=== PATIENT | female | born 1970 | race Asian ===

== ENCOUNTER 2017-10-27 11:54 | Emergency (ER) | payer SELFPAY ==
[2017-10-27] MEDS ORDERED: Lidocaine 2% Jelly 10 ML Urojet MUCMEM ONE (12:37)
--- NOTE | 2017-10-27 13:00 | EDM.PDOC ---
ED HPI GENERAL MEDICAL PROBLEM - General Chief Complaint: Skin Complaint Stated Complaint: MEDICAL Time Seen by Provider: 10/27/17 12:30 Source of Information: Reports: Patient History Limitations: Reports: No Limitations - History of Present Illness INITIAL COMMENTS - FREE TEXT/NARRATIVE: 47-year-old female with a history of recurring thrombosed internal hemorrhoids presents with a current flare of painful swollen hemorrhoids for the past 5-7 days. She's been taking warm baths but it's not improving. Onset: Gradual (Over the past 7 days) - Related Data Allergies Allergy/AdvReac Type Severity Reaction Status Date / Time No Known Allergies Allergy Verified 10/27/17 12:18 Home Meds: Home Meds NK [No Known Home Meds] 10/27/17 [History] Past Medical History - Past Health History Medical/Surgical History: Denies Medical/Surgical History - Past Surgical History GI Surgical History: Reports: Other (See Below) Female Surgical History: Reports: Section Social & Family History - Tobacco Use Smoking Status *Q: Never Smoker ED ROS GENERAL - Review of Systems Review Of Systems: See Below Constitutional: Denies: Fever Respiratory: Denies: Shortness of Breath GI/Abdominal: Denies: Abdominal Pain, Nausea, Vomiting : Reports: No Symptoms Neurological: Reports: No Symptoms Psychiatric: Reports: No Symptoms ED EXAM, SKIN/RASH Exam: See Below Exam Limited By: No Limitations General Appearance: Alert, No Apparent Distress Respiratory/Chest: No Respiratory Distress Rectal (Female) Exam: Other (Exam is otherwise limited to the rectal area. The patient has a fairly large multi loculated right-sided thrombosed hemorrhoid which is very tender to palpation.) Course - Vital Signs Last Recorded V/S: Last Vital Signs Temp 98 F 10/27/17 12:27 Pulse 71 10/27/17 12:27 Resp 14 10/27/17 12:27 BP 144/92 H 10/27/17 12:27 Pulse Ox 99 10/27/17 12:27 - Orders/Labs/Meds Meds: Medications Discontinued Medications Generic Name Dose Route Start Last Admin Trade Name Freq PRN Reason Stop Dose Admin Lidocaine HCl 5 ml 10/27/17 12:37 10/27/17 12:45 Xylocaine-Mpf 1% INJECT 10/27/17 12:38 5 ml ONETIME ONE Administration Lidocaine HCl 10 ml 10/27/17 12:37 10/27/17 12:45 Xylocaine 2% Jelly MUCMEM 10/27/17 12:38 10 ml ONETIME ONE Administration - Re-Assessments/Exams Free Text/Narrative Re-Assessment/Exam: 10/27/17 12:58 The area was sterilized with Betadine, infiltrated with 1% lidocaine and the hemorrhoids were opened with a #11 scalpel. All the thrombosis was removed, and using a cross-clamp the surface of the hemorrhoids were cut off with a curved iris scissors. Topical viscous lidocaine was used for postprocedure anesthesia and she can increase activity as tolerated. Departure - Departure Time of Disposition: 13:19 Disposition: Home, Self-Care 01 Condition: Good Clinical Impression: External hemorrhoid, thrombosed - Discharge Information Instructions: Hemorrhoids, [id number] Referrals: PCP,None [Primary Care Provider] - Forms: ED Department Discharge Care Plan Goals: Continue with warm baths twice daily, topical numbing medicine may help or ibuprofen. Activity as tolerated. Recheck in 3-4 days if not improving satisfactorily.
== END 2017-10-27 13:18 | disposition home or self-care (01) ==
LOC: JP.ED 11:54
DX: K64.5 Perianal venous thrombosis (principal)
CPT/HCPCS: 46083; 99283; 99283-25

== ENCOUNTER 2019-08-15 12:35 | Emergency (ER) | payer OTHER ==
[2019-08-15] MEDS ORDERED: Aluminum Hydroxide/Magnesium Hydroxide/Simethicone Susp 30 ML Cup PO ONE (13:11)
[2019-08-15] MEDS ORDERED: Ondansetron 4 MG Tab.DIS PO ONE (13:11)
[2019-08-15] MEDS ORDERED: Acetaminophen 325 MG Tab PO ONE (13:11)
--- NOTE | 2019-08-15 13:26 | EDM.PDOC ---
ED HPI GENERAL MEDICAL PROBLEM - General Chief Complaint: Abdominal Pain Stated Complaint: POSSIBLE SINUS INFECTION Time Seen by Provider: 08/15/19 13:10 Source of Information: Reports: Patient, Provider History Limitations: Reports: No Limitations - History of Present Illness INITIAL COMMENTS - FREE TEXT/NARRATIVE: 49 yo female presents on referral from the clinic for evaluation of BARNHART, fever, body aches. She was seen yesterday in the clinic and had a negative influenza test so was started on doxycycline that has not helped so far and in fact she also has now epigastric pain with nausea/vomiting. Today her temperature has dropped from 102F to 99F. Last took acetaminophen yesterday. Has a slightly stiff neck and some mild photophobia. Reportedly spends very little time outside, does not recall any tick bites. Onset: Gradual Onset Date: 08/13/19 Duration: Day(s):, Constant Location: Reports: Head, Neck, Abdomen (new since yesterday), Generalized Quality: Reports: Other (abdominal pain is crampy) Severity: Moderate Improves with: Reports: None Worsens with: Reports: None Context: Reports: Other (See HPI) Associated Symptoms: Reports: Fever/Chills, Headaches, Nausea/Vomiting (since yesterday and starting the doxycycline) Treatments CARTON CATCHER: Reports: Other (see below) (doxycycline) Headache Pain Score (Numeric/FACES): 10 Abdominal Pain Score (Numeric/FACES): 10 Lower Back Pain Score (Numeric/FACES): 9 - Related Data Allergies Allergy/AdvReac Type Severity Reaction Status Date / Time No Known Allergies Allergy Verified 08/15/19 12:54 Home Meds: Home Meds Doxycycline [Doxycycline Hyclate] 100 mg PO BID 08/15/19 [History] Ondansetron [Zofran ODT] 4 mg PO Q6H PRN #7 tab.dis 08/15/19 [Rx] Past Medical History - Past Health History Medical/Surgical History: Denies 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: Neurological History: Reports: Headaches, Chronic - Past Surgical History Head Surgeries/Procedures: Reports: None GI Surgical History: Reports: None, Other (See Below) Female Surgical History: Reports: Section Neurological Surgical History: Reports: None Dermatological Surgical History: Reports: None Social & Family History - Tobacco Use Smoking Status *Q: Never Smoker Second Hand Smoke Exposure: No - Caffeine Use Caffeine Use: Reports: Coffee - Recreational Drug Use Recreational Drug Use: No ED ROS GENERAL - Review of Systems Review Of Systems: See Below Constitutional: Reports: Fever, Chills, Malaise HEENT: Reports: No Symptoms Respiratory: Reports: No Symptoms. Denies: Cough Cardiovascular: Reports: No Symptoms Endocrine: Reports: No Symptoms GI/Abdominal: Reports: Abdominal Pain (epigastric since yesterday), Nausea, Vomiting (since yesterday.). Denies: Black Stool, Bloody Stool, Constipation, Diarrhea, Distension, Flatus, Hematemesis, Hematochezia : Reports: No Symptoms Musculoskeletal: Reports: No Symptoms (diffuse body aches) Skin: Reports: No Symptoms Neurological: Reports: Headache ED EXAM, GENERAL - Physical Exam Exam: See Below Exam Limited By: No Limitations General Appearance: Alert, WD/WN, Mild Distress Eye Exam: Bilateral Eye: Normal Inspection Ears: Normal External Exam, Normal Canal, Hearing Grossly Normal, Normal TMs Ear Exam: Bilateral Ear: Auricle Normal, Canal Normal, TM normal Nose: Normal Inspection, No Blood Throat/Mouth: Normal Inspection, Normal Lips, Normal Oropharynx, Normal Voice, No Airway Compromise Head: Atraumatic, Normocephalic Neck: Normal Inspection, Supple, Full Range of Motion, Other (BARNHART slightly worse with full flexion) Respiratory/Chest: No Respiratory Distress, Lungs Clear, Normal Breath Sounds, No Accessory Muscle Use Cardiovascular: Regular Rate, Rhythm, No Edema GI/Abdominal: Normal Bowel Sounds, Soft, No Distention, Tender (epigastric only) . No: Non-Tender Back Exam: Normal Inspection. No: CVA Tenderness (R), CVA Tenderness (L) Extremities: Normal Inspection, Normal Range of Motion, Non-Tender, No Pedal Edema Neurological: Alert, Oriented, CN II-XII Intact, Normal Cognition, No Motor/ Sensory Deficits Psychiatric: Normal Affect, Normal Mood Skin Exam: Warm, Dry, Intact, Normal Color, No Rash Course - Vital Signs Text/Narrative:: Feeling better after tx in the ER. Last Recorded V/S: Last Vital Signs Temp 37.8 C 08/15/19 13:16 Pulse 96 08/15/19 13:00 Resp 16 08/15/19 13:00 BP 129/84 08/15/19 13:00 Pulse Ox 99 08/15/19 13:00 Orthostatic Blood Pressure [ 127/86 Standing] Orthostatic Blood Pressure [ 130/76 Sitting] Orthostatic Blood Pressure [ 118/78 Supine] - Orders/Labs/Meds Orders: Active Orders 24 hr Category Date Time Status Orthostatic Vital Signs [RC] ASDIRECTED Care 08/15/19 13:12 Active CULTURE URINE [RM] Stat Lab 08/15/19 14:18 Ordered LYME, TOTAL AB TEST/REFLEX Routine Lab 08/15/19 14:19 Ordered Labs: Laboratory Tests 08/15/19 08/15/19 Range/Units 12:52 13:57 WBC 10.7 (4.5-11.0) K/uL RBC 4.97 (3.30-5.50) M/uL Hgb 12.5 (12.0-15.0) g/dL Hct 39.1 (36.0-48.0) % MCV 79 L (80-98) fL MCH 25 L (27-31) pg MCHC 32 (32-36) % Plt Count 247 (150-400) K/uL Urine Color Yellow (YELLOW) Urine Appearance Slightly cloudy A (CLEAR) Urine pH 7.0 (5.0-8.0) Ur Specific [place] 1.020 (1.008-1.030) Urine Protein 100 H (NEGATIVE) mg/dL Urine Glucose (UA) Negative (NEGATIVE) mg/dL Urine Ketones 15 H (NEGATIVE) mg/dL Urine Occult Blood Small H (NEGATIVE) Urine Nitrite Negative (NEGATIVE) Urine Bilirubin Negative (NEGATIVE) Urine Urobilinogen 2.0 H (0.2-1.0) EU/dL Ur Leukocyte Esterase Negative (NEGATIVE) Urine RBC 10-20 H (0-5) Urine WBC 10-20 H (0-5) Ur Epithelial Cells Moderate Amorphous Sediment Not seen Urine Bacteria Many Urine Mucus Not seen Meds: Medications Discontinued Medications Generic Name Dose Route Start Last Admin Trade Name Freq PRN Reason Stop Dose Admin Acetaminophen 650 mg 08/15/19 13:11 08/15/19 13:16 Tylenol PO 08/15/19 13:12 650 mg NOW ONE Administration Al Hydroxide/Mg Hydroxide 30 ml 08/15/19 13:11 08/15/19 13:16 Mag-Al Plus PO 08/15/19 13:12 30 ml ONETIME ONE Administration Ondansetron HCl 4 mg 08/15/19 13:11 08/15/19 13:15 Zofran Odt PO 08/15/19 13:12 4 mg ONETIME ONE Administration Departure - Departure Time of Disposition: 14:21 Disposition: Home, Self-Care 01 Condition: Fair Clinical Impression: Viral syndrome, Medication side effect - Discharge Information *PRESCRIPTION DRUG MONITORING PROGRAM REVIEWED*: No *COPY OF PRESCRIPTION DRUG MONITORING REPORT IN PATIENT DUANE: No Prescriptions: Ondansetron [Zofran ODT] 4 mg PO Q6H PRN #7 tab.dis PRN Reason: Nausea Referrals: Hayley Estrada CNM [Primary Care Provider] - Forms: ED Department Discharge Additional Instructions: Stop the doxycycline due to gastric irritation. Take acetaminophen 650 mg every 4 hrs as needed for pain/fever/headache. Take Maalox every 4 hrs up to 2 tablespoons as needed for upset stomach. Rest. Drink ample fluids. Recheck in the clinic on Saturday or Saturday to follow up on your urine culture. Return if worse. - My Orders Last 24 Hours: My Active Orders 08/15/19 13:12 Orthostatic Vital Signs [RC] ASDIRECTED 08/15/19 14:18 CULTURE URINE [RM] Stat 08/15/19 14:19 LYME, TOTAL AB TEST/REFLEX Routine - Assessment/Plan Last 24 Hours: My Active Orders 08/15/19 13:12 Orthostatic Vital Signs [RC] ASDIRECTED 08/15/19 14:18 CULTURE URINE [RM] Stat 08/15/19 14:19 LYME, TOTAL AB TEST/REFLEX Routine
[2019-08-19 09:09] LABS: LYME IGG/IGM AB <0.91 ISR (0.00-0.90)
== END 2019-08-15 14:36 | disposition home or self-care (01) ==
LOC: JP.ED 12:35
DX: B34.9 Viral infection, unspecified (principal); R10.13 Epigastric pain; T36.4X5A Adverse effect of tetracyclines, initial encounter
CPT/HCPCS: 36415; 81001; 85027; 87086; 99284; A9270

== ENCOUNTER 2021-10-30 20:01 | Emergency (ER) | payer OTHER ==
[2021-10-30] MEDS ORDERED: Sodium Chloride 0.9% 1,000 ML IV SCH (20:30)
[2021-10-30] MEDS ORDERED: Acetaminophen 325 MG Tab PO ONE (20:37)
[2021-10-30] MEDS ORDERED: Ondansetron 4 MG/2 ML SDV IVPUSH ONE (20:37)
[2021-10-30] MEDS ORDERED: HYDROmorphone 0.5 MG/0.5 ML Syringe IVPUSH ONE (20:50)
--- NOTE | 2021-10-30 20:59 | EDM.PDOC ---
ED HPI GENERAL MEDICAL PROBLEM - General Chief Complaint: Gastrointestinal Problem Stated Complaint: dehydrated, throwing up, weak Time Seen by Provider: 10/30/21 20:15 Source of Information: Reports: Patient, Family (Friend), RN History Limitations: Reports: No Limitations - History of Present Illness INITIAL COMMENTS - FREE TEXT/NARRATIVE: chief complaint: abdominal pain with nausea and vomiting. This is a 51 year old female with limited Eritrean, her Boyfriend is here to assist with speaking. They report she woke up this morning nauseated and vomiting. she has not been able to keep any food or liquids in. reports abdomen and right sided back pain. She is generally healthy, not taking any medications. Last time in hospital 20 years ago. Covid-19 vaccinated. Onset: Today Duration: Getting Worse Location: Reports: Abdomen, Radiates to (right back) Quality: Reports: Ache, Sharp Severity: Moderate (rates pain 8 out of 10) Improves with: Reports: None Worsens with: Reports: None Associated Symptoms: Reports: Fever/Chills, Headaches, Loss of Appetite, Nausea/Vomiting (reports woke up with nausea and vomiting), Weakness Treatments CHEMICAL PREPARER: Reports: Acetaminophen Headache Pain Score (Numeric/FACES): 8 - Related Data Allergies Allergy/AdvReac Type Severity Reaction Status Date / Time No Known Allergies Allergy Verified 08/15/19 12:54 Past Medical History - Past Health History Medical/Surgical History: Denies 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: Neurological History: Reports: Headaches, Chronic - Past Surgical History Head Surgeries/Procedures: Reports: None GI Surgical History: Reports: None, Other (See Below) Female Surgical History: Reports: Section Neurological Surgical History: Reports: None Dermatological Surgical History: Reports: None Social & Family History - Tobacco Use Tobacco Use Status *Q: Never Tobacco User Second Hand Smoke Exposure: No - Caffeine Use Caffeine Use: Reports: Coffee - Recreational Drug Use Recreational Drug Use: No - Living Situation & Occupation Living situation: Reports: ED ROS GENERAL - Review of Systems Review Of Systems: See Below Constitutional: Reports: Fever, Chills, Malaise, Decreased Appetite HEENT: Reports: No Symptoms Respiratory: Reports: No Symptoms Cardiovascular: Reports: No Symptoms Endocrine: Reports: No Symptoms GI/Abdominal: Reports: Abdominal Pain, Decreased Appetite, Nausea, Vomiting Musculoskeletal: Reports: Back Pain, Muscle Pain Skin: Reports: No Symptoms Neurological: Reports: No Symptoms Psychiatric: Reports: No Symptoms Hematologic/Lymphatic: Reports: No Symptoms Immunologic: Reports: No Symptoms ED EXAM, GI/ABD - Physical Exam Exam: See Below Exam Limited By: Language Barrier General Appearance: Alert, WD/WN, Moderate Distress, Thin Eyes: Bilateral: Normal Appearance Ears: Normal External Exam, Normal Canal, Hearing Grossly Normal, Normal TMs Nose: Normal Inspection, Normal Mucosa, No Blood Throat/Mouth: Normal Inspection, Normal Lips, Normal Teeth, Normal Gums, Normal Oropharynx, Normal Voice, No Airway Compromise Head: Atraumatic, Normocephalic Neck: Normal Inspection, Supple, Non-Tender, Full Range of Motion Respiratory/Chest: No Respiratory Distress, Lungs Clear, Normal Breath Sounds, No Accessory Muscle Use, Chest Non-Tender Cardiovascular: Normal Peripheral Pulses, Regular Rate, Rhythm, No Edema, No Gallop, No Murmur GI/Abdominal Exam: Normal Bowel Sounds, Soft, Non-Tender, No Organomegaly, No Distention, No Abnormal Bruit, No Mass, Pelvis Stable (Female) Exam: Deferred Rectal (Female) Exam: Deferred Back Exam: Normal Inspection, Full Range of Motion Extremities: Normal Inspection, Normal Range of Motion, Non-Tender, No Pedal Edema, Normal Capillary Refill Neurological: Alert, Oriented, Normal Cognition, No Motor/Sensory Deficits Psychiatric: Normal Affect, Normal Mood Skin Exam: Warm, Dry, Intact, Normal Color, No Rash Lymphatic: No Adenopathy Course - Vital Signs Last Recorded V/S: Last Vital Signs Temp 100.2 F 10/30/21 21:17 Pulse 93 10/30/21 20:21 Resp 16 10/30/21 20:21 BP 125/72 10/30/21 20:21 Pulse Ox 97 10/30/21 20:21 - Orders/Labs/Meds Orders: Active Orders 24 hr Category Date Time Status UA W/MICROSCOPIC [URIN] Urgent Lab 10/30/21 20:19 Ordered Sodium Chloride 0.9% [Normal Saline] 1,000 ml Med 10/30/21 20:30 Active IV ASDIRECTED Medication Orders Sodium Chloride (Normal Saline) 1,000 mls @ 999 mls/hr IV ASDIRECTED SALVADOR Last Admin: 10/30/21 20:46 Dose: 999 mls/hr Documented by: RADHA Labs: Laboratory Tests 10/30/21 10/30/21 10/30/21 Range/Units 20:31 20:31 20:31 WBC 6.2 (4.5-11.0) K/uL RBC 5.40 (3.30-5.50) M/uL Hgb 14.1 (12.0-15.0) g/dL Hct 42.5 (36.0-48.0) % MCV 79 L (80-98) fL MCH 26 L (27-31) pg MCHC 33 (32-36) % Plt Count 232 (150-400) K/uL Neut % (Auto) 90.8 H (36-66) % Lymph % (Auto) 5.8 L (24-44) % [place] % (Auto) 3.1 (2-6) % Eos % (Auto) 0.0 L (2-4) % Baso % (Auto) 0.3 (0-1) % Sodium 139 L (140-148) mmol/L Potassium 3.8 (3.6-5.2) mmol/L Chloride 101 (100-108) mmol/L Carbon Dioxide 26 (21-32) mmol/L Anion Gap 15.8 H (5.0-14.0) mmol/L BUN 15 (7-18) mg/dL Creatinine 0.8 (0.6-1.0) mg/dL Est Cr Clr Drug Dosing 63.74 mL/min Estimated GFR (MDRD) > 60 (>60) Glucose 138 H (74-106) mg/dL Calcium 8.6 (8.5-10.1) mg/dL Magnesium 1.9 (1.8-2.4) mg/dL Total Bilirubin 0.2 (0.2-1.0) mg/dL AST 21 (15-37) U/L ALT 27 (12-78) U/L Alkaline Phosphatase 57 (46-116) U/L Total Protein 7.4 (6.4-8.2) g/dL Albumin 3.6 (3.4-5.0) g/dL Globulin 3.8 H (2.3-3.5) g/dL Albumin/Globulin Ratio 1.0 L (1.2-2.2) Amylase 65 (25-115) U/L Lipase 66 L (73-393) U/L Influenza Type A RNA Negative (NEGATIVE) RSV RNA (INAAT) Negative (NEGATIVE) Influenza Type B RNA Negative (NEGATIVE) SARS-CoV-2 RNA (VANDANA) Positive H (NEGATIVE) Meds: Medications Generic Name Dose Route Start Last Admin Trade Name Florina PRN Reason Stop Dose Admin Sodium Chloride 1,000 mls @ 999 mls/hr 10/30/21 20:30 10/30/21 20:46 Normal Saline IV 999 mls/hr ASDIRECTED SALVADOR Administration Discontinued Medications Generic Name Dose Route Start Last Admin Trade Name Florina PRN Reason Stop Dose Admin Acetaminophen 650 mg 10/30/21 20:37 10/30/21 20:50 Acetaminophen 325 Mg Tab PO 10/30/21 20:38 650 mg NOW ONE Administration Hydromorphone HCl 0.5 mg 10/30/21 20:50 10/30/21 21:11 Hydromorphone 0.5 Mg/0.5 Ml Syringe IVPUSH 10/30/21 20:51 0.5 mg ONETIME ONE Administration Ondansetron HCl 4 mg 10/30/21 20:37 10/30/21 20:47 Ondansetron 4 Mg/2 Ml Sdv IVPUSH 10/30/21 20:38 4 mg ONETIME ONE Administration - Re-Assessments/Exams Free Text/Narrative Re-Assessment/Exam: 10/30/21 21:19 [address] with Mrs. Cueto will do labs, Imaging, medication, and IV fluids -CT Abdominal and Pelvis to rule out any acute abdominal process -CBC, CMP, AMYLASE, LIPASE, URINE, COVID -Meds- Zofran 4 mg. IVP for nausea, Dilaudid 0.5 mg IV for pain control agree with plan of care. 10/30/21 21:23 call from labs critical value- Positive Covid test - this would account for rapid symptoms. vital signs are 97.8-93-16 B/P 125/72 oxygen sat 97% 10/30/21 22:24 labs cbc, cmp, amylase, lipase and urine normal results Covid test is positive CT abdomen-pelvis is negative for acute abdomen.- will give copy of scan report will discharge to home with Covid 19 instructions Zofran 4 mg po as directed over the counter Tylenol and Motrin for pain or fever. 10/30/21 22:26 discharge to home Departure - Departure Time of Disposition: 22:40 Disposition: Home, Self-Care 01 Condition: Good Clinical Impression: COVID-19 - Discharge Information *PRESCRIPTION DRUG MONITORING PROGRAM REVIEWED*: Not Applicable *COPY OF PRESCRIPTION DRUG MONITORING REPORT IN PATIENT DUANE: Not Applicable Instructions: Symptoms of COVID-19 - [facility] (12/19/2020) Referrals: PCP,None [Primary Care Provider] - Forms: ED Department Discharge Care Plan Goals: Covid-19 Positive -stay at home as directed -Zofran 4 mg po every 4 to 6 hours as needed for nausea -rest -return to ER for any shortness of breath or worsen symptoms. Sepsis Event Note (ED) - Focused Exam Vital Signs: Vital Signs Temp Temp Pulse Resp BP Pulse Ox 10/30/21 21:17 100.2 F 10/30/21 20:21 97.8 F 93 16 125/72 97 - Problem List & Annotations (1) COVID-19 SNOMED Code(s): 154268397 Code(s): U07.1 - COVID-19 Status: Acute Priority: High Current Visit: Yes - Problem List Review Problem List Initiated/Reviewed/Updated: Yes - My Orders Last 24 Hours: My Active Orders 10/30/21 20:19 UA W/MICROSCOPIC [URIN] Urgent 10/30/21 20:30 Sodium Chloride 0.9% [Normal Saline] 1,000 ml IV ASDIRECTED - Assessment/Plan Last 24 Hours: My Active Orders 10/30/21 20:19 UA W/MICROSCOPIC [URIN] Urgent 10/30/21 20:30 Sodium Chloride 0.9% [Normal Saline] 1,000 ml IV ASDIRECTED Plan: Covid-19 Positive -stay at home as directed -Zofran 4 mg po every 4 to 6 hours as needed for nausea -rest -return to ER for any shortness of breath or worsen symptoms.
[2021-10-30 21:14] LABS: CORONAVIRUS COVID-19 NAA POSITIVE (NEGATIVE)
--- NOTE | 2021-10-30 22:19 | CRLCT ---
For Patients: As a result of the Century Cures Act, medical imaging exams and procedure reports are released immediately into your electronic medical record. You may view this report before your referring provider. If you have questions, please contact your health care provider. Indication: Abdominal pain, nausea, vomiting, diarrhea Technique: Nonenhanced axial CT imaging through the abdomen and pelvis. Sagittal and coronal reconstructions are provided. Comparison: None Findings: Examination is mildly degraded by motion. There is normal renal parenchymal attenuation without hydronephrosis. No stones are seen in the renal collecting systems, ureters, or urinary bladder. There is unremarkable noncontrast appearance of the liver, gallbladder, spleen, pancreas, and adrenal glands. There is normal caliber of the abdominal aorta. No lymphadenopathy is appreciated in the abdomen or pelvis. The uterus appears somewhat enlarged. The stomach and duodenum are unremarkable. There is normal caliber of the small bowel. The appendix is noninflamed. There is no colonic wall thickening or mesenteric edema. Prominent fecal material is noted in the sigmoid colon and rectum, suggesting constipation. The bones appear demineralized, suggesting osteopenia. The included lung bases are clear. Impression: 1. Prominent fecal material in the sigmoid colon and rectum, suggesting constipation. Correlate clinically. 2. Mildly enlarged uterus. Consider follow-up ultrasound. 3. Otherwise no acute process demonstrated. Please note that all CT scans at this facility use dose modulation, iterative reconstruction, and/or weight-based dosing when appropriate to reduce radiation dose to as low as reasonably achievable. Dictated by Aida Pierre MD @ 10/30/2021 10:18:21 PM (Electronically Signed)
== END 2021-10-30 23:07 | disposition home or self-care (01) ==
LOC: JP.ED 20:01
DX: U07.1 COVID-19 (principal)
CPT/HCPCS: 0241U; 36415; 74176; 80053; 82150; 83690; 83735; 85025; 96374; 96375; 99284; A9270; J1170; J2405; J7030

== ENCOUNTER 2022-04-07 11:37 | Emergency (ER) | payer MEDICAID, OTHER ==
[2022-04-07] MEDS ORDERED: Sodium Chloride 0.9% 10 ML Syringe FLUSH PRN (12:07)
[2022-04-07] MEDS ORDERED: Lactated Ringers 1,000 ML IV ONE (12:07)
[2022-04-07] MEDS ORDERED: diphenhydrAMINE 50 MG/ML SDV IVPUSH ONE (12:08)
[2022-04-07] MEDS ORDERED: Ketorolac 30 MG/ML SDV IVPUSH ONE (12:08)
[2022-04-07] MEDS ORDERED: Prochlorperazine 10 MG/2 ML SDV IVPUSH ONE (12:08)
[2022-04-07] MEDS ORDERED: Haloperidol Lactate 5 MG/ML SDV IVPUSH ONE (13:42)
[2022-04-07] MEDS ORDERED: Dexamethasone 4 MG/ML SDV IVPUSH ONE (13:42)
== END 2022-04-07 15:14 | disposition home or self-care (01) ==
LOC: JP.ED 11:37
DX: G43.909 Migraine, unspecified, not intractable, without status migrainosus (principal)
CPT/HCPCS: 70450; 96361; 96374; 96375; 99283; J0780; J1100; J1200; J1630; J1885; J3490; J7120; 99284

== ENCOUNTER 2023-11-12 11:04 | Emergency (ER) | payer MEDICAID, OTHER ==
[2023-11-12] MEDS ORDERED: Sodium Chloride 0.9% 10 ML Syringe FLUSH PRN (13:21)
[2023-11-12] MEDS ORDERED: droPERidol 5 MG/2 ML SDV IVPUSH ONE (13:22)
[2023-11-12] MEDS ORDERED: Lactated Ringers 1,000 ML IV SCH (13:30)
[2023-11-12 13:37] LABS: BASOPHILS PERCENT AUTO 0.2 % (0.1-1.3); HEMATOCRIT 43.7 % (34.3-46.0); HEMOGLOBIN 14.4 g/dL (11.2-15.5); IMMATURE GRAN PERCENT AUTO 0.2 % (0.0-0.7); LYMPHOCYTES ABSOLUTE AUTO 0.57 K/uL (0.8-3.3); LYMPHOCYTES PERCENT AUTO 12.4 % (11.4-47.7); MEAN CORPUSCULAR HEMOGLOBIN 26.2 pg (31.6-35.5); MEAN CORPUSCULAR VOLUME 79.6 fL (81.4-99.0); MONOCYTES ABSOLUTE AUTO 0.16 K/uL (0.20-0.90); MONOCYTES PERCENT AUTO 3.5 % (3.3-12.6); NEUTROPHILS ABSOLUTE AUTO 3.85 K/uL (1.0-7.6); NEUTROPHILS PERCENT AUTO 83.7 % (40.0-78.1); PLATELET COUNT,PLT 189 K/uL (130-375); RED BLOOD CELL COUNT 5.49 M/uL (3.77-5.24); WHITE BLOOD CELL COUNT,WBC 4.6 K/uL (3.2-11.0)
[2023-11-12 13:38] LABS: BASOPHILS ABSOLUTE AUTO 0.01 K/uL (0.00-0.10); IMMATURE GRAN ABSOLUTE AUTO 0.01 K/uL (0.00-0.23)
[2023-11-12 14:02] LABS: A/G RATIO 0.9 (1.2-2.2); ALANINE AMINOTRANSFERASE,ALT 20 U/L (12-78); ALBUMIN 3.5 g/dL (3.4-5.0); ALKALINE PHOSPHATASE 62 U/L (46-116); ASPARTATE AMNIOTRANSFERASE,AST 20 U/L (15-37); BILIRUBIN TOTAL 0.2 mg/dL (0.2-1.0); BLOOD UREA NITROGEN,BUN 11 mg/dL (7-18); CALCIUM 8.2 mg/dL (8.5-10.1); CARBON DIOXIDE,CO2 29 mmol/L (21-32); CHLORIDE,CL 100 mmol/L (100-108); CREATININE 0.6 mg/dL (0.6-1.0); EST CRCL DRUG DOSING (CG) 89.29 mL/min; ESTIMATED GFR 107 mL/min (>60); GLUCOSE RANDOM 122 mg/dL (74-106); POTASSIUM,K 3.5 mmol/L (3.6-5.2); PROTEIN TOTAL,TP 7.5 g/dL (6.4-8.2); SODIUM,NA 139 mmol/L (140-148)
[2023-11-12 14:03] LABS: ANION GAP 13.5 mmol/L (5.0-14.0)
[2023-11-12] MEDS ORDERED: Lactated Ringers 1,000 ML IV ONE (14:45)
== END 2023-11-12 16:00 | disposition home or self-care (01) ==
LOC: JP.ED 11:04
DX: K52.9 Noninfective gastroenteritis and colitis, unspecified (principal)
CPT/HCPCS: 36415; 80053; 83605; 85025; 96361; 96374; 99283; 99284-25; J1790; J3490; J7120